=== PATIENT | female | born 1995 | race Caucasian/White ===

== ENCOUNTER → 2017-12-01 | Outpatient (REF) | payer BC, SELFPAY | LOC: LAB | PROVIDERS: Visit Provider Nurse Practitioner Family | DX: R19.7 Diarrhea, unspecified (principal) | CPT/HCPCS: 87177 ==

== ENCOUNTER → 2018-04-12 09:03 | Outpatient (CLI) | payer BC, SELFPAY | PROVIDERS: PCP Nurse Practitioner; Visit Provider Nurse Practitioner | DX: R55 Syncope and collapse (principal) | CPT/HCPCS: 93270 ==

== ENCOUNTER → 2019-05-29 15:17 | Outpatient (CLI) | payer BC, SELFPAY ==
--- NOTE | 2019-05-29 15:19 | MR_ITS ---
PROCEDURE: MR FOOT LT WO CON CLINICAL INDICATION: LEFT FOOT PAIN Left foot pain COMPARISON: [id number] VIEWS from 08/21/2015 TECHNIQUE: Routine multiplanar multi echo sequences are performed without gadolinium enhancement. FINDINGS: There is a small area of increased T2 signal involving the talus posteriorly and laterally. This is nonspecific. The remaining bony structures have an unremarkable appearance. There is a teardrop shaped fluid collection along the distal aspect between the heads of the 4th and 5th metatarsals with the most prominent component along the plantar surface of this space measuring approximately 7 mm transverse and 13 mm longitudinal. There is a mild amount of surrounding soft tissue edema around this area. This is consistent with a Mcduffie's neuroma. No other significant anomalies are evident. No obvious ligamentous or tendinous abnormalities. 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
== END ==
PROVIDERS: PCP Nurse Practitioner; Visit Provider Orthopaedic Surgery Sports Medicine
DX: M79.672 Pain in left foot (principal)
CPT/HCPCS: 73718

== ENCOUNTER → 2019-12-27 12:33 | Outpatient (CLI) | payer BC, SELFPAY ==
[2019-12-28 15:19] LABS: Covid-19 Nasal PCR Sendout Lex Not Detected
== END ==
PROVIDERS: PCP Family Medicine; Visit Provider Family Medicine
DX: Z03.818 Encounter for observation for suspected exposure to other biological agents ruled out (principal)
CPT/HCPCS: U0004

== ENCOUNTER 2020-09-03 12:14 | Emergency (ER) | payer OTHER, SELFPAY ==
[2020-09-03 12:24] VITALS: BP 139/76; PULSE 93; RESP 16; TEMP 36.6; O2SAT 98; BMI 24.7
[2020-09-03 12:49] LABS: Apearance,Urine Cloudy (Clear); Color,Urine Dark Yellow (Yellow); Glucose,Urine (UA) Negative (Negative); Ketones,Urine Negative (Negative); Protein,Urine 2+ (Negative)
[2020-09-03 12:50] LABS: Bilirubin,Urine Negative (Negative); Blood, Urine 4+ (Negative); UTC Leukocyte Esterase,Urine 3+ (Negative); UTC Nitrate,Urine Positive (Negative); Urobilinogen,Urine 0.2 EU/dl (0.2)
[2020-09-03 12:54] VITALS: BP 133/76; PULSE 85; RESP 14; TEMP 36.6
--- NOTE | 2020-09-03 13:00 | HMH.EDUTC ---
[facility] [place] Dis[place] Clinical Impression: UTI (urinary tract infection) Qualifiers: Urinary tract infection type: site unspecified Hematuria presence: with hematuria Qualified Code(s): N39.0 - Urinary tract infection, site not specified Disposition: Home, Self-Care Condition on Discharge: Good Instructions: Urinary Tract Infection, DI for Urinary Tract Infection (UTI) Additional Instructions: Drink plenty of fluids. Take tylenol or ibuprofen for pain or fever. Take the medications as directed. Follow up with your regular doctor. GO TO THE ER FOR ANY WORSENING SYMPTOMS The pyridium will make your urine turn orange, this is an expected side effect. It will stain your clothes if it comes into contact with them. Prescriptions: Ondansetron [Zofran 4mg ODT] 4 mg PO Q8HP PRN #12 tab.rapdis PRN Reason: Nausea [facility] Sulfamethoxazole/Trimethoprim [Bactrim DS tablet] 1 each PO BID 7 Days #14 tab Transmission Status: [facility] Phenazopyridine HCl [Pyridium 200mg Tablet] 200 pow PO TID #6 tab Transmission Status: [facility] Referrals: Red Mccabe MD [Primary Care Provider] - Forms: Work/School Release Time of Disposition: 13:03 Medical Decision Making - Medical Records Medical records reviewed: No: I reviewed the patient's medical records. - Jae Inquiry Pt receiving controlled substance: No Vital Signs: 09/03/20 12:24 09/03/20 12:54 Temperature 98 F 98 F Temperature Source Oral Pulse Rate 85 Pulse Rate [Right] 93 H Respiratory Rate 16 14 Blood Pressure 133/76 Blood Pressure [Right Arm] 139/76 Blood Pressure Mean [Right Arm] 97 02 Sat by Pulse Oximetry 98 - Lab Data Lab Results 09/03/20 12:37: Urine Color Dark yellow, Urine Appearance Cloudy, Urine pH 6.0, Ur Specific [place] 1.020, Urine Protein 2+, Urine Glucose (UA) Negative, Urine Ketones Negative, Urine Blood 4+, Urine Nitrate Positive A, Urine Bilirubin Negative, Urine Urobilinogen 0.2, Ur Leukocyte Esterase 3+ A Orders (Tests/Meds): ORDERS Category Date Time Status Urine Culture Stat Micro 09/03/20 12:28 Received [facility] [place] HPI - General Stated complaint: possible UTI Time Seen by Provider: 09/03/20 13:00 Mode of Arrival: Ambulatory Source of Information: Patient Limitations: No Limitations Description of Symptoms (Recalled from Triage Doc. by RN): pt thinks she has a uti. HEENT Symptoms (Recalled from RN notes): No Resp Symptoms (Recalled from RN notes): No Skin Symptoms (Recalled from RN notes): No MS Symptoms (Recalled from RN notes): No Functional Status (Recalled from RN notes): na - History of Present Illness Provider Complaint: She reports that for the past 2 days she has had low back pain, dysuria, urinary frequency. She believes that she has a UTI. She denies any fever/chills. - Related Data Home Medications Medication Instructions Recorded Confirmed montelukast 10 mg tablet PO 30 Days #30 11/15/17 norethindrone acetate 1 mg-ethinyl PO 21 Days #21 11/15/17 estradiol 20 mcg tablet Previous Rx's Medication Instructions Recorded Ondansetron [Zofran 4mg ODT] 4 mg PO Q8HP PRN #12 tab.rapdis 09/03/20 Phenazopyridine HCl [Pyridium 200 pow PO TID #6 tab 09/03/20 200mg Tablet] Sulfamethoxazole/Trimethoprim 1 each PO BID 7 Days #14 tab 09/03/20 [Bactrim DS tablet] Allergies Allergy/AdvReac Type Severity Reaction Status Date / Time acetaminophen [From Percocet] Allergy Verified 09/03/20 12:51 oxycodone [From Percocet] Allergy Verified 09/03/20 12:51 - Worker's Comp Is this a Worker's Comp case?: No [facility] History - Hepatitis A Screen Drug use history?: No High risk sexual behaviors?: No History of sexually transmitted infection?: No Currently employed?: No Childcare worker?: No Do you have indoor plumbing?: Yes Do you have electricity?: Yes Atte
== END 2020-09-03 13:07 | disposition home or self-care (01) ==
PROVIDERS: Emergency Provider Nurse Practitioner Family; PCP Emergency Medicine
DX: N30.00 Acute cystitis without hematuria (principal); F17.210 Nicotine dependence, cigarettes, uncomplicated
CPT/HCPCS: 81003; 87086; 87088; 87186; 99202; G0463

== ENCOUNTER → 2020-12-18 11:48 | Outpatient (CLI) | payer OTHER, SELFPAY | PROVIDERS: Visit Provider Nurse Practitioner | DX: U07.1 COVID-19 (principal) | CPT/HCPCS: C9803; U0003; U0005 ==

== ENCOUNTER 2021-01-27 12:58 | Emergency (ER) | payer OTHER, SELFPAY ==
[2021-01-27 14:20] VITALS: BP 136/90; PULSE 92; RESP 16; TEMP 36.8; O2SAT 100; BMI 25.0
--- NOTE | 2021-01-27 14:48 | HMH.EDUTC ---
[facility] [place] Clinical Impression: Fever blister Disposition: Home, Self-Care Condition on Discharge: Good Instructions: Cold Sores, DI for Cold Sores, Acyclovir Additional Instructions: Drink plenty of fluids. Take tylenol for pain. Take the medications as directed. Follow up with your regular doctor. GO TO THE ER FOR ANY WORSENING SYMPTOMS Prescriptions: Acyclovir 400 mg PO 5XDAY 5 Days #25 tab Transmission Status: Received by [id number] Referrals: Provider,Referral, [Primary Care Provider] - Forms: Work/School Release Time of Disposition: 14:52 Medical Decision Making - Medical Records Medical records reviewed: No: I reviewed the patient's medical records. - Jae Inquiry Pt receiving controlled substance: No Vital Signs: 01/27/21 14:20 01/27/21 14:56 Temperature 98.2 F 98.2 F Temperature Source Oral Pulse Rate 92 H Pulse Rate [Right Brachial] 92 H Respiratory Rate 16 16 Blood Pressure 136/90 Blood Pressure [Right Arm] 136/90 Blood Pressure Mean [Right Arm] 105 Blood Pressure Source [Right Arm] Automatic Cuff Blood Pressure Position [Right Arm] Sitting 02 Sat by Pulse Oximetry 100 Oxygen Delivery Method Room Air [facility] [place] HPI - General Stated complaint: fever blisters Time Seen by Provider: 01/27/21 14:48 Mode of Arrival: Ambulatory Source of Information: Patient Limitations: No Limitations Description of Symptoms (Recalled from Triage Doc. by RN): PATIENT C/O FEVER BLISTER THAT STARTED COMING UP THIS MORNING HEENT Symptoms (Recalled from RN notes): Yes Resp Symptoms (Recalled from RN notes): No Skin Symptoms (Recalled from RN notes): No MS Symptoms (Recalled from RN notes): No Functional Status (Recalled from RN notes): WNL - History of Present Illness Provider Complaint: She has a history of getting fever blisters on her lips very bad. In the past she has taken antivirals when she feels one start to come up, but she is out of the medication now. - Related Data Previous Rx's Medication Instructions Recorded Acyclovir 400 mg PO 5XDAY 5 Days #25 tab 01/27/21 Allergies Allergy/AdvReac Type Severity Reaction Status Date / Time acetaminophen [From Percocet] Allergy Verified 09/03/20 12:51 oxycodone [From Percocet] Allergy Verified 09/03/20 12:51 - Worker's Comp Is this a Worker's Comp case?: No H History - Hepatitis A Screen Drug use history?: No High risk sexual behaviors?: No History of sexually transmitted infection?: No Currently employed?: No Childcare worker?: No Do you have indoor plumbing?: Yes Do you have electricity?: Yes Attestation statement:: This patient has been screened for Hepatitis A risk factors. I have reviewed the patient's past medical history: Yes Medical History: Reports:: Asthma Other Surgeries: Yes: No Previous Surgery - Social History Smoking Status: Never smoker Alcohol Intake: current Alcohol Intake Frequency:: holidays/special occasions only Occupational Status: unemployed Housing: house Household Members: family Family Hx:: Cancer ROS Obtained: Yes All systems reviewed & no additional complaints - Constitutional Constitutional: Denies chills, Denies fever(s) - Eyes Eyes: Denies eye discharge - ENT Ears, Nose, Mouth, and Throat: Reports as per HPI - Cardiovascular Cardiovascular: Denies chest pain - Respiratory Respiratory: Denies chest congestion, Denies cough, Denies stridor, Denies wheezing Physical Exam - General General appearance: alert, in no apparent distress - Head Head exam: atraumatic, normocephalic, normal inspection - Eye Eye exam: Present: normal appearance, PERRL, EOMI - ENT ENT exam: Present: normal exam, normal oropharynx, mucous membranes moist, TM's normal bilaterally, normal external ear exam - Neck Neck exam: Present: normal inspection, full ROM, trachea midline. Absent: meningismus, lymphadenopathy - Chest Chest inspection: Pres
[2021-01-27 14:56] VITALS: BP 136/90; PULSE 92; RESP 16; TEMP 36.8; O2SAT 100
== END 2021-01-27 14:59 | disposition home or self-care (01) ==
PROVIDERS: Emergency Provider Nurse Practitioner Family
DX: B00.1 Herpesviral vesicular dermatitis (principal); J45.909 Unspecified asthma, uncomplicated
CPT/HCPCS: 99202; G0463

== ENCOUNTER 2021-04-10 10:56 | Emergency (ER) | payer BC, SELFPAY ==
[2021-04-10 11:25] VITALS: BP 134/82; PULSE 89; RESP 18; TEMP 36.8; O2SAT 96; BMI 25.0
[2021-04-10 11:37] LABS: UTC Strep Screen (Rapid) Positive (Negative)
[2021-04-10 11:57] VITALS: BP 134/82; PULSE 89; RESP 18; TEMP 36.8
--- NOTE | 2021-04-10 12:16 | HMH.EDUTC ---
[facility] [facility] [place] Impression: Strep throat, Exposure to COVID-19 virus Disposition: Home, Self-Care Condition on Discharge: Good Instructions: DI for Strep Throat, DI for COVID-19 (Suspected or Confirmed ), Preventing the Spread of Coronavirus Discharge Instructions Additional Instructions: Drink plenty of fluids. Take tylenol or ibuprofen for pain or fever. Take the medications as directed. Follow up with your regular doctor. GO TO THE ER FOR ANY WORSENING SYMPTOMS Throw your tooth brush away and get a new one. Quarantine until you know the results of your covid-19 test. If it is positive, the health department should call you and give you further instructions about your length of Quarantine and other things. Notify your school or workplace of your results and follow their instructions regarding return to work/school. Prescriptions: Brompheniramine/Pseudoephed/Dm [Bromfed Dm Cough Syrup] 5 ml PO Q6HP PRN #240 ml PRN Reason: Cough Transmission Status: Received by [facility] Ondansetron [Zofran 4mg ODT] 4 mg PO Q8HP PRN #20 tab PRN Reason: Nausea Transmission Status: Received by [facility] Amoxicillin/Potassium Clav [Augmentin 875-125 Tablet] 1 tab PO Q12H 10 Days #20 tab Transmission Status: Received by [facility] methylPREDNISolone [Medrol] 4 mg PO DIRECTED 6 Days #21 packet Transmission Status: Received by [facility] Referrals: Provider,Referral, MD [Primary Care Provider] - Forms: Work/School Release Time of Disposition: 12:34 Medical Decision Making - Medical Records Medical records reviewed: No: I reviewed the patient's medical records. - Jae Inquiry Pt receiving controlled substance: No Vital Signs: 04/10/21 11:25 04/10/21 11:57 Temperature 98.3 F 98.3 F Temperature Source Oral Pulse Rate 89 Pulse Rate [Left] 89 Respiratory Rate 18 18 Blood Pressure 134/82 Blood Pressure [Right Arm] 134/82 Blood Pressure Mean [Right Arm] 99 02 Sat by Pulse Oximetry 96 - Lab Data Lab results reviewed: Yes: I reviewed the patient's lab results. Lab Results 04/10/21 11:29: Strep Scn Rapid Clinic Positive A [facility] [facility] [place] - General Stated complaint: covid/strep exposure, symptoms Time Seen by Provider: 04/10/21 12:16 Mode of Arrival: Ambulatory Source of Information: Patient Limitations: No Limitations Description of Symptoms (Recalled from Triage Doc. by RN): pt c/o a LEMON, nasal drainage/congestion and nausea. pts friend is pos. for covid/strep. HEENT Symptoms (Recalled from RN notes): Yes (congestion and LEMON) Resp Symptoms (Recalled from RN notes): No Skin Symptoms (Recalled from RN notes): No MS Symptoms (Recalled from RN notes): No Functional Status (Recalled from RN notes): wnl - History of Present Illness Provider Complaint: She has been exposed to covid-19 and strep throat recently. She started having head ache, sinus congestion, and malaise yesterday. She denies sore throat, but she had her tonsils removed in the past and she doesn't get a normal sore throat when she gets strep throat. She denies any fever/chills/body ache. She has not been vaccinated against covid-19, but she had covid-19 last December. - Related Data Previous Rx's Medication Instructions Recorded Acyclovir 400 mg PO 5XDAY 5 Days #25 tab 01/27/21 Amoxicillin/Potassium Clav 1 tab PO Q12H 10 Days #20 tab 04/10/21 [Augmentin 875-125 Tablet] Brompheniramine/Pseudoephed/Dm 5 ml PO Q6HP PRN #240 ml 04/10/21 [Bromfed Dm Cough Syrup] Ondansetron [Zofran 4mg ODT] 4 mg PO Q8HP PRN #20 tab 04/10/21 methylPREDNISolone [Medrol] 4 mg PO DIRECTED 6 Days #21 04/10/21 packet Allergies Allergy/AdvReac Type Severity Reaction Status Date / Time acetaminophen [From Percocet] Allergy Verified 09/03/20 12:51 oxycodone [From Percocet] Allergy Verified 09/03/20 12:51 - Worker's Comp Is this a Worker's Comp case?: No [facility] Histo
== END 2021-04-10 12:52 | disposition home or self-care (01) ==
PROVIDERS: Emergency Provider Nurse Practitioner Family
DX: J02.0 Streptococcal pharyngitis (principal); J45.909 Unspecified asthma, uncomplicated; Z20.822 Contact with and (suspected) exposure to COVID-19
CPT/HCPCS: 87880; 99203; C9803; G0463; U0003; U0005

== ENCOUNTER → 2021-04-22 14:23 | Outpatient (CLI) | payer BC, SELFPAY | PROVIDERS: PCP Family Medicine; Visit Provider Nurse Practitioner | DX: Z20.822 Contact with and (suspected) exposure to COVID-19 (principal) | CPT/HCPCS: C9803; U0003; U0005 ==

== ENCOUNTER 2021-04-29 12:04 | Emergency (ER) | payer BC, SELFPAY ==
[2021-04-29 12:20] VITALS: BP 134/82; PULSE 105; RESP 20; TEMP 37.1; O2SAT 98; BMI 26.0
--- NOTE | 2021-04-29 12:42 | HMH.EDUTC ---
[facility] [place]ression: Exposure to COVID-19 virus, Viral syndrome Pharyngitis Qualifiers: Pharyngitis/tonsillitis etiology: unspecified etiology Qualified Code(s): J02.9 - Acute pharyngitis, unspecified Disposition: Home, Self-Care Condition on Discharge: Good Instructions: DI for Viral Syndrome Additional Instructions: Drink plenty of fluids. Take tylenol or ibuprofen for pain or fever. Take the medications as directed. Follow up with your regular doctor. GO TO THE ER FOR ANY WORSENING SYMPTOMS Quarantine until you know the results of your covid-19 test. Notify your school or workplace of your results and follow their instructions regarding return to work/school. Prescriptions: Brompheniramine/Pseudoephed/Dm [Bromfed Dm Cough Syrup] 5 ml PO Q6HP PRN #240 ml PRN Reason: Cough Transmission Status: Received by [facility] Ondansetron [Zofran 4mg ODT] 4 mg PO Q8HP PRN #20 tab PRN Reason: Nausea Transmission Status: Received by [facility] Referrals: Patti Lopez MD [Primary Care Provider] - Forms: Work/School Release Time of Disposition: 13:05 Medical Decision Making - Medical Records Medical records reviewed: No: I reviewed the patient's medical records. - Jae Inquiry Pt receiving controlled substance: No Vital Signs: 04/29/21 12:20 04/29/21 13:12 Temperature 98.8 F 98.8 F Temperature Source Oral Pulse Rate 105 H Pulse Rate [Right Brachial] 105 H Respiratory Rate 20 20 Blood Pressure 134/82 Blood Pressure [Right Arm] 134/82 Blood Pressure Mean [Right Arm] 99 Blood Pressure Source [Right Arm] Automatic Cuff Blood Pressure Position [Right Arm] Sitting 02 Sat by Pulse Oximetry 98 Oxygen Delivery Method Room Air - Lab Data Lab results reviewed: Yes: I reviewed the patient's lab results. Lab Results 04/29/21 12:45: Group A Strep Rapid Negative Orders (Tests/Meds): ORDERS Category Date Time Status Covid-19 Nasal PCR ([facility]) Routine Lab 04/29/21 12:29 Received Strep Screen Confirmation Stat Micro 04/29/21 12:45 [place] [facility] [place] - General Stated complaint: possible sinus infection Time Seen by Provider: 04/29/21 12:42 Mode of Arrival: Ambulatory Source of Information: Patient Limitations: No Limitations Description of Symptoms (Recalled from Triage Doc. by RN): PATIENT C/O SORE THROAT SINCE YESTERDAY. REQUESTING COVID TEST HEENT Symptoms (Recalled from RN notes): Yes Resp Symptoms (Recalled from RN notes): No Skin Symptoms (Recalled from RN notes): No MS Symptoms (Recalled from RN notes): No Functional Status (Recalled from RN notes): WNL - Related Data Previous Rx's Medication Instructions Recorded Brompheniramine/Pseudoephed/Dm 5 ml PO Q6HP PRN #240 ml 04/29/21 [Bromfed Dm Cough Syrup] Ondansetron [Zofran 4mg ODT] 4 mg PO Q8HP PRN #20 tab 04/29/21 Allergies Allergy/AdvReac Type Severity Reaction Status Date / Time acetaminophen [From Percocet] Allergy Verified 09/03/20 12:51 oxycodone [From Percocet] Allergy Verified 09/03/20 12:51 - Worker's Comp Is this a Worker's Comp case?: No [facility] History - Hepatitis A Screen Drug use history?: No High risk sexual behaviors?: No History of sexually transmitted infection?: No Currently employed?: No Childcare worker?: No Do you have indoor plumbing?: Yes Do you have electricity?: Yes Attestation statement:: This patient has been screened for Hepatitis A risk factors. Medical History: Reports:: Asthma Other Surgeries: Yes: No Previous Surgery - Social History Smoking Status: Never smoker Alcohol Intake: current Alcohol Intake Frequency:: holidays/special occasions only Occupational Status: unemployed Housing: house Household Members: family Family Hx:: Cancer ROS Obtained: Yes All systems reviewed & no additional complaints - Constitutional Constitutional: Reports as per HPI - Eyes Eyes: Denies eye discharge
[2021-04-29 13:12] VITALS: BP 134/82; PULSE 105; RESP 20; TEMP 37.1; O2SAT 98
[2021-04-29 13:26] LABS: Strep Scrn Group A (Rapid) Negative (Negative)
== END 2021-04-29 13:17 | disposition home or self-care (01) ==
PROVIDERS: Emergency Provider Nurse Practitioner Family; PCP Family Medicine
DX: U07.1 COVID-19 (principal); J45.909 Unspecified asthma, uncomplicated
CPT/HCPCS: 87430; 99203; C9803; G0463; U0003; U0005

== ENCOUNTER 2021-08-06 09:01 | Emergency (ER) | payer BC, SELFPAY ==
[2021-08-06 09:10] VITALS: BP 128/80; PULSE 92; RESP 18; TEMP 36.7; O2SAT 99; BMI 26.4
--- NOTE | 2021-08-06 09:53 | HMH.EDUTC ---
[facility] [place] Clinical Impression: Viral upper respiratory illness Disposition: Home, Self-Care Condition on Discharge: Good Instructions: Sore Throat Additional Instructions: *Monitor Temp, Over the counter Motrin or Tylenol as directed/as needed Tylenol every 4 hours and Motrin every 6 hours (as long as your family doctor has told you that you can take it) for fever or pain. and straight to ER if unable to lower temp less than 101.0 after medication given *Warm salt water gargles may help to soothe the throat *Throat Lozenges *Warm fluids like tea with honey may help to soothe the throat *Sleep elevated *Humidifier/Vaporizer *Flonase 2 sprays in each nostril daily but be aware that it may take 2-3 days before you notice improvement *Bromfed may cause drowsiness. Know how it effects you (your child) before driving, caring for small child, or sending your child to school. Not other antihistamines/allergy medications while taking bromfed Your throat swab was sent for culture. Those results are typically sent to your primary care. Be sure to follow up in 2-3 days with your family doctor/primary care physician if no improvement so they can review those result and treat if necessary. If you don?t have a primary care doctor, I recommend you get one but in the mean time, you will have to return to a walk in clinic Follow up IMMEDIATELY for new or worsening symptoms or no Noticeable improvement over the next 48-72 hours. 911 for difficulty breathing or swallowing Referrals: Patti Lopez MD [Primary Care Provider] - As needed Forms: Work/School Release Time of Disposition: 10:22 Medical Decision Making - Jae Inquiry Pt receiving controlled substance: No Jae was queried for this patient: No Vital Signs: 08/06/21 09:10 08/06/21 10:06 Temperature 98.1 F 98.1 F Temperature Source Oral Pulse Rate 92 H Pulse Rate [Right Brachial] 92 H Respiratory Rate 18 18 Blood Pressure 128/80 Blood Pressure [Right Arm] 128/80 Blood Pressure Mean [Right Arm] 96 Blood Pressure Source [Right Arm] Automatic Cuff Blood Pressure Position [Right Arm] Sitting 02 Sat by Pulse Oximetry 99 Oxygen Delivery Method Room Air - Lab Data Lab results reviewed: Yes: I reviewed the patient's lab results. Lab Results 08/06/21 09:31: Group A Strep Rapid Negative Orders (Tests/Meds): ORDERS Category Date Time Status Strep Screen Confirmation Stat Micro 08/06/21 09:31 Received [facility] [place] HPI - General Stated complaint: sore throat, cough Time Seen by Provider: 08/06/21 09:54 Mode of Arrival: Ambulatory Source of Information: Patient Limitations: No Limitations Description of Symptoms (Recalled from Triage Doc. by RN): [place] C/O SORE THROAT AND COUGH SINCE WEDNESDAY HEENT Symptoms (Recalled from RN notes): Yes Resp Symptoms (Recalled from RN notes): No Skin Symptoms (Recalled from RN notes): No MS Symptoms (Recalled from RN notes): No Functional Status (Recalled from RN notes): wnl - History of Present Illness Provider Complaint: Patient states that she has been having sore scratchy throat and cough since the weekend State that today it was still hurting so she came in to get it checked - Related Data Home Medications Medication Instructions Recorded Confirmed fluticasone propionate 110 1 puff INHALATION g 05/15/21 05/15/21 mcg/actuation HFA aerosol inhaler levocetirizine 5 mg tablet 5 mg PO DAILY tab 05/15/21 05/15/21 montelukast 10 mg tablet 10 mg PO DAILY tab 05/15/21 05/15/21 valacyclovir 1 gram tablet 1,000 mg PO DAILY tab 05/15/21 05/15/21 Previous Rx's Medication Instructions Recorded Ondansetron [Zofran 4mg ODT] 4 mg PO Q8HP PRN #20 tab 04/29/21 norethindrone acetate 1 mg-ethinyl 1 tab PO DAILY #63 tab 05/15/21 estradiol 20 mcg tablet Allergies Allergy/AdvReac Type Severity Reaction Status Date / Time acetaminophen [From Percocet] Allergy Verified 05/15/21 13:53 oxycodone [F
[2021-08-06 10:05] LABS: Strep Scrn Group A (Rapid) Negative (Negative)
[2021-08-06 10:06] VITALS: BP 128/80; PULSE 92; RESP 18; TEMP 36.7; O2SAT 99
== END 2021-08-06 10:29 | disposition home or self-care (01) ==
PROVIDERS: Emergency Provider Nurse Practitioner; PCP Family Medicine
DX: J06.9 Acute upper respiratory infection, unspecified (principal); Z88.6 Allergy status to analgesic agent; J45.909 Unspecified asthma, uncomplicated
CPT/HCPCS: 87430; 99212; G0463

== ENCOUNTER → 2022-01-20 16:29 | Outpatient (CLI) | payer BC, SELFPAY ==
[2022-01-20 17:56] LABS: HCG,Quantitative < 2 mIU/ml (0-5.42)
== END ==
PROVIDERS: PCP Family Medicine; Visit Provider Obstetrics & Gynecology
DX: N93.8 Other specified abnormal uterine and vaginal bleeding (principal)
CPT/HCPCS: 36415; 84702

== ENCOUNTER 2022-04-15 11:49 | Emergency (ER) | payer BC, SELFPAY ==
[2022-04-15 11:50] VITALS: BP 131/68; PULSE 81; RESP 21; TEMP 36.9; O2SAT 99; BMI 26.7
[2022-04-15 12:18] LABS: Apearance,Urine Clear (Clear); Color,Urine Yellow (Yellow)
[2022-04-15 12:19] LABS: Bilirubin,Urine Negative (Negative); Blood, Urine Trace (Negative); Glucose,Urine (UA) Negative (Negative); Ketones,Urine Negative (Negative); Protein,Urine Trace (Negative); UTC Leukocyte Esterase,Urine 1+ (Negative); UTC Nitrate,Urine Negative (Negative); Urobilinogen,Urine 1 EU/dl (0.2)
[2022-04-15 12:25] LABS: UTC Pregnancy Test, Urine Negative (Negative)
--- NOTE | 2022-04-15 12:39 | EXP.UTC ---
Discharge Plan Disposition Patient Disposition: Home, Self-Care Condition: Good Prescriptions Prescriptions: New ciprofloxacin HCl [Cipro] 500 mg tablet 500 mg PO BID Qty: 20 0RF metronidazole 500 mg tablet 500 mg PO TID Qty: 30 0RF No Action levocetirizine 5 mg tablet 5 mg PO DAILY montelukast 10 mg tablet 10 mg PO DAILY valacyclovir 1 gram tablet 1,000 mg PO DAILY Flovent HFA 110 mcg/actuation HFA aerosol inhaler 1 puff INHALATION norethindrone ac-eth estradiol [Microgestin 04/24 (21)] 1-20 mg-mcg tablet 1 tab PO DAILY ondansetron 4 MG tablet,disintegrating 4 mg PO Q8HP PRN (Reason: Nausea) Qty: 20 0RF Referrals Follow up/Referrals: Patti Lopez MD [Primary Care Provider] - See instructions Activity Restrictions/Add. Instructions Additional Instructions/Restrictions: Cipro and Flagyl as prescribed. Ibuprofen as needed for pain. Follow-up with primary care provider within 1 week, call for appointment. Return the emergency department if severe pain, fever, vomiting. Clinical Impressions Clinical Impression: Diverticulitis Instructions Patient Instructions: DI for Diverticulitis Discharge ED Provider: Dhiraj Yadav [facility] General Chief complaint: PAIN Stated complaint: LT side lower abd pain Mode of Arrival: Ambulatory Source of Information: Patient Limitations: No Limitations Time Seen by Provider: 04/15/22 14:40 Description of Symptoms (Recalled from Triage Doc. by RN): pain in lower left abdomen for last 6 days with no period. Just got off it like 10 days ago. HEENT Symptoms (Recalled from RN notes): No Resp Symptoms (Recalled from RN notes): No Skin Symptoms (Recalled from RN notes): No MS Symptoms (Recalled from RN notes): No Functional Status (Recalled from RN notes): n/a History of Present Illness Provider Complaint: Patient states that since Wednesday she has been having pain in her left lower abdomen that has continued to get worse states that it is steady and sharp constant pain States that she called and made appointment with OBGYN but cannot get in until next week States that today the pain was worse and she rates pain a solid 8 States that it is very uncomfortable and more consistent State that she has been having pain today in her left flank area but has been bent over knitting a blanket and not sure if that is what is causing that Denies any pain or burning with urination Related Data Home Medications Medication Instructions Recorded Confirmed fluticasone propionate 110 1 puff inhalation 05/15/21 05/15/21 mcg/actuation HFA aerosol inhaler (Flovent HFA) levocetirizine 5 mg tablet 5 mg PO DAILY allergies 05/15/21 04/15/22 montelukast 10 mg tablet 10 mg PO DAILY Asthma 05/15/21 04/15/22 valacyclovir 1 gram tablet 1,000 mg PO DAILY . 05/15/21 04/15/22 norethindrone acetate 1 mg-ethinyl 1 tab PO DAILY control 04/15/22 04/15/22 estradiol 20 mcg tablet (Microgestin) Previous Rx's Medication Instructions Recorded ondansetron 4 mg disintegrating 4 mg PO Q8HP PRN Nausea #20 tabs 04/29/21 tablet ciprofloxacin HCl 500 mg tablet 500 mg PO BID #20 tabs 04/15/22 (Cipro) metronidazole 500 mg tablet 500 mg PO TID #30 tabs 04/15/22 Allergies Allergy/AdvReac Type Severity Reaction Status Date / Time acetaminophen [From Percocet] Allergy Verified 04/15/22 12:17 oxycodone [From Percocet] Allergy Verified 04/15/22 12:17 Worker's Comp Is this a Worker's Comp case?: No [facility] Disclaimer: The information contained in this section may have been updated after the patient was seen, as this information can be updated by other users. Social History Smoking Status: Never smoker alcohol intake: current current occupational status: unemployed Travel in the last 8 weeks: None household members: family housing: house ROS Obtained: Yes All systems reviewed & no additional complaints except as
--- NOTE | 2022-04-15 13:56 | CT_ITS ---
FINAL REPORT TECHNIQUE: Axial images through the abdomen and pelvis were performed without contrast. This study was performed with techniques to keep radiation doses as low as reasonably achievable, (ALARA). Individualized dose reduction techniques using automated exposure control or adjustment of mA and/or kV according to the patient's size were employed. CLINICAL HISTORY: FLANK PAIN, LEFT X 5 DAYS FINDINGS: ABDOMEN: There is a calcified granuloma in the right lung base. The heart size is normal. Limited images of the liver are unremarkable. The spleen is normal. No adrenal mass is identified. The aorta is normal in caliber. There is no significant free fluid or adenopathy. There is no nephrolithiasis. There is no hydronephrosis. PELVIS: The appendix is not identified. There are scattered diverticula in the descending and sigmoid colon. There is inflammation adjacent to the mid sigmoid colon, may represent acute diverticulitis. The urinary bladder is unremarkable. There is no significant free fluid or adenopathy. IMPRESSION: Findings consistent with acute sigmoid diverticulitis. No hydronephrosis or nephrolithiasis. Reviewed, Interpreted and Dictated by Yuri Cash III, MD Transcribed by Manuela Woods Authenticated and [facility]
[2022-04-15 13:58] VITALS: BP 128/70; PULSE 79; RESP 20; TEMP 36.9; O2SAT 989; BMI 26.7
[2022-04-15 14:22] LABS: Chloride 104 mmol/L (98-107); Potassium 3.5 mmoL/L (3.5-5.1); Sodium 142 mmol/L (136-145)
[2022-04-15 14:24] LABS: Blood Urea Nitrogen 9 mg/dl (7-17)
[2022-04-15 14:25] LABS: Alanine Aminotransferase 55 U/L (12-78); Albumin Level 4.5 g/dl (3.5-5.0); Albumin/Globulin Ratio 1.5 (1.1-1.8); Alkaline Phosphatase 72 U/L (38-126); Anion Gap 12.5 mEq/L (5-15); Aspartate Amino Transferase 37 U/L (14-36); Basophils # 0.1 K/mm3 (0-0.2); Basophils % 0.7 % (0.1-2.0); Bilirubin,Total 0.7 mg/dl (0.2-1.3); Calcium 9.3 mg/dl (8.4-10.2); Carbon Dioxide 29 mmol/L (22.0-30.0); Creatinine Clearance Estimated 184 mL/min (50-200); Eosinophils # 0.1 K/mm3 (0.0-0.4); Eosinophils % 1.1 % (0.1-12.0); Estimated Glomerular Filt Rate 149 ml/min (>60); GFR (African American) 180 ML/MIN (>60); Globulin 3.1 g/dL (1.3-3.2); Glucose 132 mg/dl (74-100); Hematocrit 44.7 % (37.0-47.0); Hemoglobin 14.7 g/dL (12.2-16.2); Lipase 92 U/L (23-300); Lymphocytes # 2.2 K/mm3 (0.7-4.5); Lymphocytes % 26.9 % (10-50); Mean Corpuscular Hemoglobin 29.7 pg (27.0-31.2); Monocytes # 0.4 K/mm3 (0.1-1.0); Monocytes % 5.5 % (1.7-9.3); Neutrophils # 5.3 K/mm3 (1.8-7.8); Neutrophils % 65.8 % (37.0-80.0); Platelet Count 410 K/mm3 (142-424); Red Blood Count 4.97 M/mm3 (4.20-5.40); Red Cell Distribution Width 13.4 % (11.5-17.5); Total Protein,Serum 7.6 g/dl (6.3-8.2)
--- NOTE | 2022-04-15 14:39 | HMH.EDGENADL ---
Discharge Plan Disposition Patient Disposition: Home, Self-Care Condition: Good Prescriptions Prescriptions: New ciprofloxacin HCl [Cipro] 500 mg tablet 500 mg PO BID Qty: 20 0RF metronidazole 500 mg tablet 500 mg PO TID Qty: 30 0RF No Action levocetirizine 5 mg tablet 5 mg PO DAILY montelukast 10 mg tablet 10 mg PO DAILY valacyclovir 1 gram tablet 1,000 mg PO DAILY Flovent HFA 110 mcg/actuation HFA aerosol inhaler 1 puff INHALATION norethindrone ac-eth estradiol [Microgestin 04/24 ()] 1-20 mg-mcg tablet 1 tab PO DAILY ondansetron 4 MG tablet,disintegrating 4 mg PO Q8HP PRN (Reason: Nausea) Qty: 20 0RF Referrals Follow up/Referrals: Patti Lopez MD [Primary Care Provider] - See instructions Activity Restrictions/Add. Instructions Additional Instructions/Restrictions: Cipro and Flagyl as prescribed. Ibuprofen as needed for pain. Follow-up with primary care provider within 1 week, call for appointment. Return the emergency department if severe pain, fever, vomiting. Clinical Impressions Clinical Impression: Diverticulitis Instructions Patient Instructions: DI for Diverticulitis Discharge ED Provider: Dhiraj Yadav General Adult HPI General Chief complaint: PAIN Stated complaint: LT side lower abd pain Time Seen by Provider: 04/15/22 14:40 Mode of Arrival: Ambulatory Source of Information: Patient Limitations: No Limitations Description of Symptoms (Recalled from ER Triage Doc. by RN): pt to ed c/o LLQ pain and lower back pain. pt states the pain radiates to her pelvis. pt denies urinary symptoms. History of Present Illness HPI narrative: The patient is sent from the urgent treatment center. 6-day history of left lower quadrant pain with some slight pain in her left lower back. No other associated symptoms. No fever, vomiting, diarrhea, constipation, urinary symptoms. No prior similar pain. No prior abdominal surgeries. The pain improves with a heating pad, nothing seems to make it worse. Related Data Home Medications Medication Instructions Recorded Confirmed fluticasone propionate 110 1 puff inhalation 05/15/21 05/15/21 mcg/actuation HFA aerosol inhaler (Flovent HFA) levocetirizine 5 mg tablet 5 mg PO DAILY allergies 05/15/21 04/15/22 montelukast 10 mg tablet 10 mg PO DAILY Asthma 05/15/21 04/15/22 valacyclovir 1 gram tablet 1,000 mg PO DAILY . 05/15/21 04/15/22 norethindrone acetate 1 mg-ethinyl 1 tab PO DAILY control 04/15/22 04/15/22 estradiol 20 mcg tablet (Microgestin) Previous Rx's Medication Instructions Recorded ondansetron 4 mg disintegrating 4 mg PO Q8HP PRN Nausea #20 tabs 04/29/21 tablet ciprofloxacin HCl 500 mg tablet 500 mg PO BID #20 tabs 04/15/22 (Cipro) metronidazole 500 mg tablet 500 mg PO TID #30 tabs 04/15/22 Allergies Allergy/AdvReac Type Severity Reaction Status Date / Time acetaminophen [From Percocet] Allergy Verified 04/15/22 12:17 oxycodone [From Percocet] Allergy Verified 04/15/22 12:17 [facility] Disclaimer: The information contained in this section may have been updated after the patient was seen, as this information can be updated by other users. Social History Smoking Status: Never smoker alcohol intake: current current occupational status: unemployed Travel in the last 8 weeks: None household members: family housing: house ROS Obtained: Yes Systems reviewed as appropriate & no additional complaints except as documented Constitutional Constitutional: Denies fever(s), Denies headache(s) and Denies weakness ENT Ears, Nose, Mouth, and Throat: Denies headache(s), Denies nasal discharge and Denies sore throat Cardiovascular Cardiovascular: Denies chest pain Respiratory Respiratory: Denies shortness of breath and Denies cough Gastrointestinal Gastrointestingal: Reports abdominal pain; Denies constipation, diarrhea or vomiting Genitourinary Fe
[2022-04-15 14:51] LABS: Microscopic, Urine URINE MICROSCOPIC (MICROSCOPIC)
[2022-04-15 15:00] LABS: Appearance,Urine CLEAR (Clear); Bilirubin,Urine Negative (Negative); Blood, Urine TRACE-I (Negative); Color,Urine YELLOW (Yellow); Glucose,Urine (UA) Negative (Negative); Ketones,Urine Negative (Negative); Leukocyte Esterase,Urine Negative (Negative); Nitrate,Urine Negative (Negative); PH,Urine 7.5 (5.0-8.5); Protein,Urine Negative (Negative)
[2022-04-15 15:36] LABS: Bacteria,Urine 1+ /lpf; RBC,Urine Occasional #/hpf (0-3)
--- NOTE | 2022-04-15 15:39 | PC.NURSE ---
DR SANCHEZ AT BEDSIDE
[2022-04-15 17:10] VITALS: BP 121/78; PULSE 74; RESP 20; TEMP 36.9; O2SAT 99
== END 2022-04-15 16:33 | disposition home or self-care (01) ==
LOC: UTC 12:07 → ER 13:54
PROVIDERS: Nurse Practitioner; Emergency Provider Emergency Medicine; PCP Family Medicine
DX: K57.92 Diverticulitis of intestine, part unspecified, without perforation or abscess without bleeding (principal)
CPT/HCPCS: 74176; 80053; 81001; 81003; 81025; 83690; 85025; 87086; 96374; 96375; 99285; J1956

== ENCOUNTER → 2022-07-24 12:24 | Outpatient (CLI) | payer BC, SELFPAY | PROVIDERS: PCP Family Medicine; Visit Provider Internal Medicine | DX: R19.7 Diarrhea, unspecified (principal) | CPT/HCPCS: 87045; 87177 ==

== ENCOUNTER 2022-07-24 20:32 | Emergency (ER) | payer BC, SELFPAY ==
[2022-07-24 20:47] VITALS: BP 128/71; PULSE 100; RESP 20; TEMP 36.6; O2SAT 99; BMI 25.2
--- NOTE | 2022-07-24 20:54 | CT_ITS ---
PROCEDURE INFORMATION: Exam: CT Abdomen And Pelvis With Contrast Exam date and time: 07/24/2022 9:30 PM Age: 26 years old Clinical indication: Abdominal pain TECHNIQUE: Imaging protocol: Computed tomography of the abdomen and pelvis with contrast. Radiation optimization: All CT scans at this facility use at least one of these dose optimization techniques: automated exposure control; mA and/or kV adjustment per patient size (includes targeted exams where dose is matched to clinical indication); or iterative reconstruction. Contrast material: ISOVUE; Contrast volume: 75 ml; Contrast route: IV; REPORTING DATA: Count of CT and Cardiac NM exams in prior 12 months: This patient has received [address] and 0 known cardiac nuclear medicine studies in the 12 months prior to the current study. COMPARISON: CT ABDOMEN PELVIS WO CON 04/15/2022 2:05 PM FINDINGS: Lungs: Chronic partially calcified juxtapleural granuloma in the posteromedial right lung base unchanged. Heart: Heart size normal. Mediastinal space: The visualized distal esophagus is largely contracted without gross abnormality. Liver: Borderline mild hepatomegaly measuring 19 cm craniocaudal. Normal contour. No mass lesions. No intrahepatic biliary ductal dilatation. Gallbladder and bile ducts: Normal. No calcified stones. No ductal dilation. Pancreas: Normal. No inflammatory changes or ductal dilation. Spleen: Normal. No splenomegaly. Adrenal glands: Normal. No adrenal mass. Kidneys and ureters: No acute abnormalities. No hydronephrosis or hydroureter. No urinary tract stones are identified. Stomach and bowel: The stomach is unremarkable. There is excessive fluid content in the mid to distal small bowel and throughout the colonwith mildly increased mucosal enhancement, suggesting diarrheal state and enterocolitis. No small bowel dilatation or transition point suggestive of bowel obstruction was identified. No evidence of perforation or abscess. Mild diverticulosis involving the distal colon without evidence of acute diverticulitis. Appendix: The appendix is normal in caliber and demonstrates no evidence of appendicitis. Intraperitoneal space: No free fluid or air. Vasculature: No acute process. No abdominal aortic aneurysm. Lymph nodes: No adenopathy. Urinary bladder: The urinary bladder is largely contracted without gross abnormality. Reproductive: Unremarkable as visualized. Bones/joints: No acute osseous abnormalities. Transitional lumbosacral segment designated a partially lumbarized S1 segment for purposes of this exam. Slight retrolisthesis L5-S1. Soft tissues: Unremarkable. IMPRESSION: 1. Findings consistent with enterocolitis and diarrheal state. No evidence of bowel obstruction, perforation, or abscess. 2. Mild diverticulosis involving the distal colon without evidence of acute diverticulitis. 3. Borderline hepatomegaly. 4. Additional nonemergent findings detailed above.
[2022-07-24 21:01] LABS: Microscopic, Urine URINE MICROSCOPIC (MICROSCOPIC)
[2022-07-24 21:03] LABS: Appearance,Urine CLEAR (Clear); Bilirubin,Urine 1+ (Negative); Blood, Urine 3+ (Negative); Color,Urine YELLOW (Yellow); Glucose,Urine (UA) Negative (Negative); Ketones,Urine 1+ (Negative); Leukocyte Esterase,Urine Negative (Negative); Nitrate,Urine Negative (Negative); PH,Urine 5.5 (5.0-8.5); Protein,Urine Negative (Negative); Specific Gravity, Urine >= 1.030 (1.005-1.030); Urobilinogen,Urine 0.2 EU/dl (0.2)
[2022-07-24 21:07] LABS: Basophils % 0.1 % (0.1-2.0); Eosinophils # 0.2 K/mm3 (0.0-0.4); Eosinophils % 1.2 % (0.1-12.0); Hematocrit 45.5 % (37.0-47.0); Hemoglobin 15.1 g/dL (12.2-16.2); Lymphocytes # 0.5 K/mm3 (0.7-4.5); Lymphocytes % 3.7 % (10-50); Mean Corpuscular HGB Conc 33.2 g/dL (31.8-35.4); Mean Corpuscular Hemoglobin 29.3 pg (27.0-31.2); Mean Corpuscular Volume 88.5 fl (81-99); Mean Platelet Volume 8.7 fl (7.4-10.4); Monocytes # 0.5 K/mm3 (0.1-1.0); Monocytes % 3.2 % (1.7-9.3); Neutrophils % 91.8 % (37.0-80.0); Platelet Count 276 K/mm3 (142-424); Red Blood Count 5.14 M/mm3 (4.20-5.40); Urine Pregnancy, HCG Qual. Negative (Negative); White Blood Count 14.2 K/mm3 (4.8-10.8)
[2022-07-24 21:09] LABS: Bacteria,Urine Trace /lpf; MANUAL DIFFERENTIAL MANUAL DIFFERENTIAL (MANUAL DIFF); Squamous Epithelial Cell,Urine Occasional #/hpf (0-5); WBC,Urine Occasional #/hpf (0-3)
[2022-07-24 21:10] LABS: Chloride 102 mmol/L (98-107)
[2022-07-24 21:11] LABS: Potassium 3.6 mmoL/L (3.5-5.1); Sodium 135 mmol/L (136-145)
[2022-07-24 21:13] LABS: Alanine Aminotransferase 21 U/L (12-78); Albumin Level 4.2 g/dl (3.5-5.0); Albumin/Globulin Ratio 1.3 (1.1-1.8); Alkaline Phosphatase 88 U/L (38-126); Amylase 52 U/L (30-110); Anion Gap 13.6 mEq/L (5-15); Aspartate Amino Transferase 27 U/L (14-36); Bilirubin,Total 0.8 mg/dl (0.2-1.3); Blood Urea Nitrogen 14 mg/dl (7-17); Carbon Dioxide 23 mmol/L (22.0-30.0); Creatinine Clearance Estimated 150 mL/min (50-200); Estimated Glomerular Filt Rate 121 ml/min (>60); GFR (African American) 146 ML/MIN (>60); Globulin 3.2 g/dL (1.3-3.2); Glucose 106 mg/dl (74-100); Total Protein,Serum 7.4 g/dl (6.3-8.2)
[2022-07-24 21:14] LABS: Calcium 8.9 mg/dl (8.4-10.2); Lipase 58 U/L (23-300)
[2022-07-24 21:30] LABS: Lymphocytes % 12 % (10-50); Monocytes % 1 % (2-9); Neutrophils % 87 % (42-76); Platelet Estimate Normal; RBC Morphology Normal; Total Cells Counted 100
--- NOTE | 2022-07-24 22:10 | PC.NURSE ---
Pt ambulatory to bathroom. No needs voiced.
--- NOTE | 2022-07-24 22:47 | HMH.EDABDPAI ---
Discharge Plan Disposition Patient Disposition: Home, Self-Care Chief Complaint: Abdominal Pain Prescriptions Prescriptions: No Action valacyclovir 1 gram tablet 1,000 mg PO DAILY Flovent HFA 110 mcg/actuation HFA aerosol inhaler 1 puff INHALATION Lo Loestrin Fe 1 mg-10 mcg (24)/10 mcg (2) tablet 1 tab PO ONCE Qty: 28 11RF sertraline [Zoloft] 50 mg tablet 50 mg PO DAILY Qty: 30 5RF ondansetron 4 MG tablet,disintegrating 4 mg PO Q8HP PRN (Reason: Nausea) Qty: 20 0RF Referrals Follow up/Referrals: Patti Lopez MD [Primary Care Provider] - See instructions Clinical Impressions Clinical Impression: Enteritis due to Rotavirus Instructions Patient Instructions: DI for Rotavirus -- Adult Discharge ED Provider: Estelle (ED)Red Abdominal Pain HPI General Chief Complaint: Abdominal Pain Stated Complaint: Abd pain, back pain nausa Time Seen by Provider: 07/24/22 22:47 Mode of Arrival: Ambulatory Source of Information: Patient and Medical Record Limitations: No Limitations Description of Symptoms (Recalled from ER Triage Doc. by RN): Pt present with complaints of lower abdominal pain radiating into lower back that began this morning with episodes of diarrhea and vomiting.Pt seen by her PCP Dr Lopez this morning, was told it was viral. States she has hx of diverticulitis, last flare in April 2022. History of Present Illness HPI narrative: lower back pain with vomiting and diarrhea since this am - no fever - no known exposure complaint: abdominal pain Onset (ago): hour(s) Consistency: intermittent Location: diffuse Severity: moderate Quality: cramping Associated symptoms: denies other symptoms Related Data Home Medications Medication Instructions Recorded Confirmed fluticasone propionate 110 1 puff inhalation 05/15/21 05/18/22 mcg/actuation HFA aerosol inhaler (Flovent HFA) valacyclovir 1 gram tablet 1,000 mg PO DAILY . 05/15/21 05/18/22 Previous Rx's Medication Instructions Recorded ondansetron 4 mg disintegrating 4 mg PO Q8HP PRN Nausea #20 tabs 04/29/21 tablet norethindrone 1 mg-ethinyl 1 tab PO ONCE #28 tabs 06/08/22 estradiol 10 mcg (24)-iron 10 mcg(2) tablet (Lo Loestrin Fe) sertraline 50 mg tablet (Zoloft) 50 mg PO DAILY #30 tabs 06/12/22 Allergies Allergy/AdvReac Type Severity Reaction Status Date / Time acetaminophen [From Percocet] Allergy Verified 05/18/22 09:07 oxycodone [From Percocet] Allergy Verified 05/18/22 09:07 PFSH [facility] Disclaimer: The information contained in this section may have been updated after the patient was seen, as this information can be updated by other users. Surgical History (Updated 05/18/22 @ 09:14 by VITALIY Martin) History of tonsillectomy and adenoidectomy Hx of foot surgery Hx of wisdom tooth extraction Family History (Updated 05/18/22 @ 09:15 by VITALIY Martin) Other No significant family history Social History (Updated 05/18/22 @ 09:15 by VITALIY Martin) Smoking Status: Current some day smoker alcohol intake: current substance use type: marijuana current occupational status: unemployed Travel in the last 8 weeks: None household members: family housing: house ROS Obtained: Yes All systems reviewed & no additional complaints except as documented Physical Exam General General appearance: alert Head Head exam: normocephalic Eye Eye exam: Present PERRL and EOMI ENT ENT exam: Present mucous membranes moist Neck Neck exam: Present trachea midline Respiratory Respiratory exam: Absent respiratory distress Cardiovascular Cardiovascular exam: Present regular rate Abdominal Exam Abdominal exam: Present soft and tenderness; Absent guarding or rebound Extremities Exam Extremities exam: Present full ROM Back Exam Back exam: Absent CVA tenderness (R) Neurological Exam Neurological exam: Present alert, oriented X3 and CN II-XII intact; Absent motor senso
--- NOTE | 2022-07-24 22:50 | PC.NURSE ---
Dr. Mccabe at
[2022-07-24 23:01] LABS: Adenovirus F 40/41, stool Not Detected (NotDetected); Astrovirus Not Detected (NotDetected); Campylobacter Not Detected (NotDetected); Clostridium Difficile A/B, PCR Not Detected (NotDetected); Cryptosporidium Not Detected (NotDetected); Cyclospora Cayetanesis Not Detected (NotDetected); Entamoeba histolytica Not Detected (NotDetected); Enteroaggregative E coli Not Detected (NotDetected); Enteropathogenic E coli Not Detected (NotDetected); Enterotoxigenic E coli Not Detected (NotDetected); Giardia lamblia Not Detected (NotDetected); Norovirus Not Detected (NotDetected); Plesimonas Shigalloides, PCR Not Detected (NotDetected); Salmonella, PCR Not Detected (NotDetected); Sapovirus Not Detected (NotDetected); Shiga-like toxin E coli Not Detected (NotDetected); Shigella Enterovasive E coli Not Detected (NotDetected); Vibrio Cholerae Not Detected (NotDetected); Vibrio, PCR Not Detected (NotDetected); Yersinia Entercolitica, PCR Not Detected (NotDetected)
[2022-07-24 23:07] LABS: C-Reactive Protein 57.1 mg/L (0-4)
[2022-07-24 23:16] LABS: Erythrocyte Sedimentation Rate 21 mm/hr (0-20)
[2022-07-24 23:20] LABS: Procalcitonin 0.173 ng/mL (0.0-2.0)
[2022-07-25 00:45] LABS: Rotavirus A Detected (NotDetected)
--- NOTE | 2022-07-25 00:47 | PC.NURSE ---
Pt and visitor made aware that MD would be in shortly
[2022-07-25 01:01] VITALS: BP 125/65; PULSE 89; RESP 18; TEMP 36.6; O2SAT 98
== END 2022-07-25 01:09 | disposition home or self-care (01) ==
PROVIDERS: Emergency Provider Emergency Medicine; PCP Family Medicine
DX: A08.39 Other viral enteritis (principal); F17.200 Nicotine dependence, unspecified, uncomplicated
CPT/HCPCS: 74177; 80053; 81001; 81025; 82150; 83690; 84145; 85007; 85025; 85651; 86140; 87507; 96360; 96361; 96374; 96375; 99284; 99285; J2405; Q9967

== ENCOUNTER 2023-06-08 15:08 | Outpatient (CLI) | payer BC, SELFPAY ==
--- NOTE | 2023-06-08 15:25 | CT_ITS ---
PROCEDURE INFORMATION: Exam: CT Abdomen And Pelvis Without And With Contrast Exam date and time: 06/08/2023 5:26 PM Age: 27 years old Clinical indication: Abdominal pain; Localized; Right lower quadrant (rlq); Patient HX: R/O appendicitis; Additional info: Abd pain, R/O appendicitis TECHNIQUE: Imaging protocol: Computed tomography of the abdomen and pelvis without and with contrast. Radiation optimization: All CT scans at this facility use at least one of these dose optimization techniques: automated exposure control; mA and/or kV adjustment per patient size (includes targeted exams where dose is matched to clinical indication); or iterative reconstruction. Contrast material: ISOVUE 370; Contrast volume: 75 ml; Contrast route: INTRAVENOUS (IV); Other contrast: Oral, gastrografin, 30; COMPARISON: CT ABDOMEN PELVIS W CON 07/24/2022 9:30 PM FINDINGS: Pleural spaces: Benign centrally pleural based calcified nodule at the right lung base. Liver: Normal. No mass. Gallbladder and bile ducts: Normal. No calcified stones. No ductal dilation. Pancreas: Normal. No ductal dilation. Spleen: Normal. No splenomegaly. Adrenal glands: Normal. No mass. Kidneys and ureters: Normal. No hydronephrosis. Stomach and bowel: Diverticulosis. Short segment of thickened mid distal sigmoid colon with adjacent inflammatory fat stranding. No adjacent fluid collection. Appendix: Normal appendix. Intraperitoneal space: Unremarkable. No free air. No significant fluid collection. Vasculature: Unremarkable. No abdominal aortic aneurysm. Lymph nodes: Unremarkable. No enlarged lymph nodes. Urinary bladder: Unremarkable as visualized. Reproductive: 2.4 cm left ovarian cyst. Bones/joints: Unremarkable. No acute fracture. Soft tissues: Unremarkable. IMPRESSION: 1. Sigmoid diverticulitis. 2. Normal appendix. 3. 2.4 cm left ovarian cyst.
[2023-06-08] MEDS: DIATRIZOATE MEG 66% & DIATRIZOATE NA 10% 30ML UDC 30 ML PO (17:43)
[2023-06-08] MEDS: IOPAMIDOL-370 (76%);100ML BOTTLE 75 ML IV (17:43)
[2023-06-08] MEDS: SODIUM CHLORIDE 0.9% 10ML SYR (RAD ONLY) 10 ML IV (17:43)
== END 2023-06-08 23:59 ==
LOC: RAD 15:08
PROVIDERS: PCP Family Medicine; Visit Provider Nurse Practitioner
DX: R10.9 Unspecified abdominal pain (principal)
CPT/HCPCS: 74178; Q9967